=== PATIENT | female | born 1975 | race African-American/Black ===

== ENCOUNTER 2017-10-16 19:05 | Emergency (ER) | payer OTHER ==
[2017-10-16 20:13] LABS: PLATELET COUNT 501 10^3/uL (150-400)
--- NOTE | 2017-10-16 20:17 | EDPHY ---
H & P Stated Complaint: c/o abd pain/n/v/fever since this am Source: Patient Exam Limitations: No limitations - Medical/Surgical History Hx Asthma: No Hx Chronic Respiratory Disease: No Hx Diabetes: No Hx Cardiac Disease: Yes Hx Renal Disease: No Hx Cirrhosis: No Hx Alcoholism: No Hx HIV/AIDS: No Hx Splenectomy or Spleen Trauma: No Other PMH: hypertension, edometriosis, lupus, gastric bypass surg, ovarian cyst removed, cholecystectomy, appendectomy, orif L ankle, breast reduction - Social History Smoking Status: Never smoked Time Seen by Provider: 10/16/17 20:16 HPI/ROS: CHIEF COMPLAINT: Abdominal pain, nausea and vomiting, low-grade fever HISTORY OF PRESENT ILLNESS: The patient presents to the ED with a 1 day history of abdominal pain, vomiting and scant hematemesis. The patient reports she has had approximately a 5 day history of a low-grade fever. She denies cough, congestion or dysuria. The patient reports she does have some mild chronic intermittent abdominal pain as she is status post gastric bypass in November of 2015. The patient has had a remote history of peptic ulcer disease. She denies any melena or significant NSAID consumption. The patient reports she is not currently receiving primary care. She denies any melena. She denies recent hospitalization. The patient does have a history of chronic abdominal pain. This is secondary to endometriosis. She is currently working with a chronic pain provider for management of the symptoms. The patient currently is complaining of a bandlike upper abdominal pain. She has a prior history of cholecystectomy. She denies diarrhea. She has been experiencing symptoms of constipation. REVIEW OF SYSTEMS: A comprehensive 10 point review of systems is otherwise negative aside from elements mentioned in the history of present illness. (Brandon Michelle) - Physical Exam Exam: General Appearance: Alert female, no acute distress Eyes: Pupils equal and round no pallor or injection ENT, Mouth: Mucous membranes moist Respiratory: There are no retractions, lungs are clear to auscultation Cardiovascular: Regular rate and rhythm Gastrointestinal: Minimal epigastric tenderness, normal bowel sounds Neurological: A&O, normal motor function, normal sensory exam, normal cranial nerves Skin: Warm and dry, no rashes Musculoskeletal: Neck is supple nontender Extremities: symmetrical, full range of motion (Brandon Michelle) Constitutional: Initial Vital Signs Temperature (C) 37.7 C 10/16/17 19:22 Heart Rate 112 H 10/16/17 19:22 Respiratory Rate 20 10/16/17 19:22 Blood Pressure 189/131 H 10/16/17 19:22 O2 Sat (%) 96 10/16/17 19:22 O2 Delivery Mode Room Air Allergies/Adverse Reactions: metoclopramide [From Reglan] Allergy (Verified 10/16/17 19:27) NSAIDS (Non-Steroidal Anti-Inflamma Allergy (Verified 10/16/17 19:27) Penicillins Allergy (Verified 10/16/17 19:27) Home Medications: Medication Instructions Recorded Clonidine 10/16/17 Lexapro 10/16/17 Progesterone 10/16/17 Protonix 10/16/17 Ranitidine HCl [Zantac] 150 mg PO DAILY #30 tablet 10/16/17 Xanax 10/16/17 Medical Decision Making ED Course/Re-evaluation: I reviewed the [facility] The patient was evaluated at the [facility] for abdominal pain and tachycardia in August of this year. She had a CT pulmonary angiogram which was negative and a CT scan of the abdomen and pelvis which was negative. The patient had an IV established. She received 1 L of normal saline. She received 4 mg of IV Zofran. Given the patient's complaints of abdominal pain and prior surgery coupled with her leukocytosis. A CT scan of the abdomen pelvis with IV contrast has been ordered. The patient will be turned over to Dr. Browning at shift change pending the results of her CT scan and reassessment. If the CT scan that demonstrates a surgical process the patient will clearly need to be admitted to the hospital. For CT scan is negative my hope would be that the patient can be managed conservatively with Pepcid, anti emetics and gastroenterology follow-up. (Brandon Michelle) [id number]: CT scan abdomen pelvis with IV contrast negative for acute inflammatory process small hiatal hernia this was called to me by Dr. Padilla [id number]: I did go re-evaluate the patient this time she is resting comfortably she does feel better. She did request IV pain medicine here in the emergency room she was given 0.5 mg IV Dilaudid is feeling better there has been no vomiting. I did reexamine her abdomen at this time is soft nontender. She is feeling better she is agreeable discharge home. Her blood work and CT have been reviewed. I have discussed return precautions with her she understands return emergency room if develops worsening abdominal pain fever vomiting (Terence Browning) Differential Diagnosis: Differential diagnosis considered includes peptic ulcer disease, pancreatitis, Annalee-Gilbert tear, gastroenteritis, perforation, obstruction (Brandon Michelle) - Data Points Laboratory Results: Laboratory Results 10/16/17 20:00 10/16/17 20:00 10/16/17 10/16/17 10/16/17 20:50 20:00 20:00 WBC RBC Hgb Hct MCV MCH MCHC RDW Plt Count MPV Neut % (Auto) Lymph % (Auto) [place] % (Auto) Eos % (Auto) Baso % (Auto) Nucleat RBC Rel Count Absolute Neuts (auto) Absolute Lymphs (auto) Absolute Monos (auto) Absolute Eos (auto) Absolute Basos (auto) Absolute Nucleated RBC Immature Gran % Immature Gran # Sodium Potassium Chloride Carbon Dioxide Anion Gap BUN Creatinine Estimated GFR Glucose Calcium Total Bilirubin 0.6 mg/dL mg/dL (0.1-1.4) Conjugated Bilirubin 0.6 mg/dL H mg/dL (0.0-0.5) Unconjugated Bilirubin 0.0 mg/dL mg/dL (0.0-1.1) AST 34 IU/L IU/L (14-46) ALT 28 IU/L IU/L (9-52) Alkaline Phosphatase 76 IU/L IU/L (38-126) Total Protein 7.3 g/dL g/dL (6.3-8.2) Albumin 3.8 g/dL g/dL (3.5-5.0) Lipase 132 IU/L IU/L (23-300) Beta HCG, Qual NEGATIVE Specimen Hemolysis Urine Color YELLOW Urine Appearance CLEAR Urine pH 6.0 (5.0-7.5) Ur Specific [place] 1.017 (1.002-1.030) Urine Protein NEGATIVE (NEGATIVE) Urine Ketones NEGATIVE (NEGATIVE) Urine Blood NEGATIVE (NEGATIVE) Urine Nitrate NEGATIVE (NEGATIVE) Urine Bilirubin NEGATIVE (NEGATIVE) Urine Urobilinogen NEGATIVE EU EU (0.2-1.0) Ur Leukocyte Esterase NEGATIVE (NEGATIVE) Urine RBC NONE SEEN /hpf /hpf (0-3) Urine WBC 1-3 /hpf /hpf (0-3) Ur Epithelial Cells TRACE /lpf /lpf (NONE-1+) Urine Bacteria TRACE /hpf H /hpf (NONE SEEN) Urine Mucus TRACE /lpf /lpf (NONE-1+) Urine Glucose NEGATIVE (NEGATIVE) 10/16/17 10/16/17 20:00 20:00 WBC 16.62 10^3/uL H 10^3/uL (3.80-9.50) RBC 4.49 10^6/uL 10^6/uL (4.18-5.33) Hgb 11.3 g/dL L g/dL (12.6-16.3) Hct 35.4 % L % (38.0-47.0) MCV 78.8 fL L fL (81.5-99.8) MCH 25.2 pg L pg (27.9-34.1) MCHC 31.9 g/dL L g/dL (32.4-36.7) RDW 16.8 % H % (11.5-15.2) Plt Count 501 10^3/uL H 10^3/uL (150-400) MPV 9.2 fL fL (8.7-11.7) Neut % (Auto) 69.9 % % (39.3-74.2) Lymph % (Auto) 23.8 % % (15.0-45.0) [place] % (Auto) 4.7 % % (4.5-13.0) Eos % (Auto) 0.8 % % (0.6-7.6) Baso % (Auto) 0.4 % % (0.3-1.7) Nucleat RBC Rel Count 0.0 % % (0.0-0.2) Absolute Neuts (auto) 11.62 10^3/uL H 10^3/uL (1.70-6.50) Absolute Lymphs (auto) 3.95 10^3/uL H 10^3/uL (1.00-3.00) Absolute Monos (auto) 0.78 10^3/uL 10^3/uL (0.30-0.80) Absolute Eos (auto) 0.13 10^3/uL 10^3/uL (0.03-0.40) Absolute Basos (auto) 0.07 10^3/uL 10^3/uL (0.02-0.10) Absolute Nucleated RBC 0.00 10^3/uL 10^3/uL (0-0.01) Immature Gran % 0.4 % % (0.0-1.1) Immature Gran # 0.07 10^3/uL 10^3/uL (0.00-0.10) Sodium 142 mEq/L mEq/L (135-145) Potassium 4.9 mEq/L mEq/L (3.5-5.2) Chloride 112 mEq/L H mEq/L (97-110) Carbon Dioxide 19 mEq/l L mEq/l (22-31) Anion Gap 11 mEq/L mEq/L (8-16) BUN 10 mg/dL mg/dL (7-23) Creatinine 0.7 mg/dL mg/dL (0.6-1.0) Estimated GFR > 60 Glucose 90 mg/dL mg/dL (70-100) Calcium 8.7 mg/dL mg/dL (8.5-10.4) Total Bilirubin Conjugated Bilirubin Unconjugated Bilirubin AST ALT Alkaline Phosphatase Total Protein Albumin Lipase Beta HCG, Qual Specimen Hemolysis 133 Urine Color Urine Appearance Urine pH Ur Specific [place] Urine Protein Urine Ketones Urine Blood Urine Nitrate Urine Bilirubin Urine Urobilinogen Ur Leukocyte Esterase Urine RBC Urine WBC Ur Epithelial Cells Urine Bacteria Urine Mucus Urine Glucose Medications Given: Discontinued Medications Hydromorphone HCl (Dilaudid) 0.5 mg IVP EDNOW ONE Stop: 10/16/17 21:45 Last Admin: 10/16/17 21:52 Dose: 0.5 mg Sodium Chloride (Ns) 1,000 mls @ 0 mls/hr IV ONCE ONE; Wide Open PRN Reason: Protocol Stop: 10/16/17 20:46 Last Admin: 10/16/17 20:58 Dose: 1,000 mls Ondansetron HCl (Zofran) 4 mg IVP EDNOW ONE Stop: 10/16/17 20:47 Last Admin: 10/16/17 20:58 Dose: 4 mg Departure - Departure Disposition: Home, Routine, Self-Care Clinical Impression: Abdominal pain Qualifiers: Abdominal location: generalized Qualified Code(s): R10.84 - Generalized abdominal pain Condition: Good Instructions: Acute Abdominal Pain (ED) Additional Instructions: 1. Take it easy over the next 24-48.. No spicy fatty greasy foods. 2. Return emergency room if develops worsening abdominal pain fever vomiting 3. Follow up with her doctor. Referrals: NONE *PRIMARY CARE P,. [Primary Care Provider] - As per Instructions Prescriptions: Ranitidine HCl [Zantac] 150 mg PO DAILY #30 tablet
[2017-10-16] MEDS ORDERED: NS 1,000 ML IV ONE (20:45)
[2017-10-16] MEDS ORDERED: ONDANSETRON 4 MG/2 ML VIAL IVP ONE (20:46)
[2017-10-16] MEDS ORDERED: IOPAMIDOL (ISOVUE-300) 100 ML BTL ONE ×2 (21:13→21:22)
[2017-10-16] MEDS ORDERED: HYDROmorphONE/DILAUDID 2 MG/ML INJ IVP ONE (21:44)
[2017-10-16 23:37] VITALS: BP 170/126
== END 2017-10-17 00:03 | disposition home or self-care (01) ==
DX: R10.84 Generalized abdominal pain (principal); I10 Essential (primary) hypertension; E86.9 Volume depletion, unspecified; Z90.49 Acquired absence of other specified parts of digestive tract
CPT/HCPCS: 96374; J1170; J2405; Q9967

== ENCOUNTER 2017-10-18 18:12 | Emergency (ER) | payer OTHER ==
--- NOTE | 2017-10-18 18:37 | EDPHY ---
H & P Stated Complaint: abd pain seen monday Time Seen by Provider: 10/18/17 18:36 HPI/ROS: HPI: A 42-year-old female who presents with Chief Complaint: abd pain seen Monday Location:bandlike upper abdomen Quality: pain Duration: today Signs and Symptoms: no fever, + nausea, no vomiting, no hematemesis, no blood in stool, no abdominal bloating, no diarrhea, no back pain, no urinary symptoms , no vaginal bleeding/discharge, no indigestion, no chest pain, no shortness of breath Timing: Acute on chronic Severity: 01/02 Context: Patient presents with complaints of acute on chronic, moderate to severe bandlike pain in her upper abdomen that was just too unbearable today. She reports that she drank some Ting with mild relief. Reports that she sees pain management from her endometriosis. Was given oxycodone does not take due to side effects. She is scheduled for an injection in her back in the next month. She is unable to take Reglan due to side effects. She denies any NSAID use/steroid use. She reports that she is status post gastric bypass surgery in November 2015 in [place]. She does take her Protonix daily. She has chronic high blood pressure and takes clonidine 0.1 mg 3 times daily. She has taken it twice today. Denies any chest pain/shortness of breath. Patient reports that she has low-grade fevers for the last 3-4 days. Patient was seen in this emergency room 10/16/2017 with laboratory studies and CT abdomen and pelvis scan that was grossly unremarkable except for small hiatal hernia. Patient reports that she does not have a primary care provider, bariatric surgeon to follow up with as she recently moved to [place], [place] from [place], [place]. Modifying Factors: regularly schedule meds Comment: ROS: see HPI Constitutional: No fever, no chills, no weight loss Eyes: No blurred vision Respiratory: No shortness of breath, no cough Cardiovascular: No chest pain, no palpitations Gastrointestinal: + nausea, no vomiting, no diarrhea, no hematemesis, no blood in stool Genitourinary: No dysuria, no blood in urine Extremities: No myalgias, no edema Neurologic: No weakness, no numbness Skin: No rashes, no petechiae Hematologic: No bruising, no bleeding MEDICAL/SURGICAL/SOCIAL HISTORY: Medical history: hypertension, endometriosis, lupus Surgical history: gastric bypass surgery, ovarian cyst removed, cholecystectomy , appendectomy, ORIF Left ankle, breast reduction Social history: Originally from [place]. Family history noncontributory. CONSTITUTIONAL: Morbidly obese well appearing middle-aged black female, awake and alert, no obvious distress HEENT: Atraumatic and normocephalic, PERRL, EOMI. Nares patent; no rhinorrhea; no nasal mucosal edema. Tympanic membranes clear. Oropharynx clear, no exudate and moist pink mucosa. Airway patent. No lymphadenopathy. No meningismus. Cardiovascular: Normal S1/S2, tachycardia, regular rhythm, without murmur rub or gallop. PULMONARY/CHEST: Symmetrical and nontender. Clear to auscultation bilaterally. Good air movement. No accessory muscle usage. ABDOMEN: Soft, nondistended, mild epigastric reproducible tenderness, no rebound, no guarding, no peritoneal signs, no masses or organomegaly. No CVAT. EXTREMITIES: 2/2 pulses, strength 5/5, no deformities, no clubbing, no cyanosis or edema. NEUROLOGICAL: no focal neuro deficits. GCS 15. SKIN: Warm and dry, no erythema. no rash. Good capillary refill. Source: Patient Exam Limitations: No limitations - Personal History LMP (Females 10-55): Over 28 Days Ago Current Tetanus Diphtheria and Acellular Pertussis (TDAP): Yes - Medical/Surgical History Hx Asthma: No Hx Chronic Respiratory Disease: No Hx Diabetes: No Hx Cardiac Disease: No Hx Renal Disease: No Hx Cirrhosis: No Hx Alcoholism: No Hx HIV/AIDS: No Hx Splenectomy or Spleen Trauma: No Other PMH: hypertension, edometriosis, lupus, gastric bypass surg, ovarian cyst removed, cholecystectomy, appendectomy, orif L ankle, breast reduction - Social History Smoking Status: Never smoked Constitutional: Initial Vital Signs Temperature (C) 37.2 C 10/18/17 18:15 Heart Rate 122 H 10/18/17 18:15 Respiratory Rate 20 10/18/17 18:15 Blood Pressure 205/142 H 10/18/17 18:15 O2 Sat (%) 96 10/18/17 18:15 O2 Delivery Mode Room Air Allergies/Adverse Reactions: metoclopramide [From Reglan] Allergy (Verified 10/18/17 18:15) NSAIDS (Non-Steroidal Anti-Inflamma Allergy (Verified 10/18/17 18:15) Penicillins Allergy (Verified 10/18/17 18:15) Home Medications: Medication Instructions Recorded Clonidine 10/16/17 Lexapro 10/16/17 Progesterone 10/16/17 Protonix 10/16/17 Ranitidine HCl [Zantac] 150 mg PO DAILY #30 tablet 10/16/17 Xanax 10/16/17 Ondansetron Odt [Zofran Odt 4 mg 4 mg PO Q4 PRN #12 tab 10/18/17 (*)] Sucralfate [Carafate 1gm/10ml Oral 1 gm PO QID 7 Days ml 10/18/17 Liquid (*)] traMADol [Ultram 50 mg (*)] 100 mg PO Q6 PRN #12 tab 10/18/17 Medical Decision Making ED Course/Re-evaluation: Labs, urinalysis, IV medications ordered Vital signs reviewed upon arrival; significantly elevated blood pressure noted; given clonidine 0.2 mg x1 Given 1 L normal saline, IV Zofran, PO Bentyl, IV Dilaudid 1.5 mg 1944: Informed by nurse that systolic blood pressure 180s 1951: Labs reviewed. Leukocytosis of 14.3 to K noted; decreased from a few days ago when was 16.6. Elevated platelet count noted. Microcytic anemia noted. 2052: Urinalysis shows no signs of infection. Reassessed patient. Abdomen soft and nontender. repeat imaging not indicated. CT abdomen and pelvis Performed 2 days prior. No indication for free air or perforation. Passed p.o. Trial prior to discharge. Pain controlled. Patient asking to be discharged home with outpatient follow-up. Referrals to primary care provider in Gastroenterology provided. Blood pressure at discharge was 137/87 with resolved tachycardia. This patient was seen under the supervision of my secondary supervising physician. I evaluated care for this patient independently. Differential Diagnosis: Abdominal pain including but not limited to appendicitis, cholecystitis, gastritis and urinary tract infection. - Data Points Laboratory Results: Laboratory Results 10/18/17 19:05 10/18/17 19:05 10/18/17 10/18/17 10/18/17 20:13 19:07 19:05 WBC RBC Hgb Hct MCV MCH MCHC RDW Plt Count MPV Neut % (Auto) Lymph % (Auto) [place] % (Auto) Eos % (Auto) Baso % (Auto) Nucleat RBC Rel Count Absolute Neuts (auto) Absolute Lymphs (auto) Absolute Monos (auto) Absolute Eos (auto) Absolute Basos (auto) Absolute Nucleated RBC Immature Gran % Immature Gran # VBG Lactic Acid 1.1 mmol/L mmol/L (0.7-2.1) Sodium Potassium Chloride Carbon Dioxide Anion Gap BUN Creatinine Estimated GFR Glucose Calcium Total Bilirubin Conjugated Bilirubin Unconjugated Bilirubin AST ALT Alkaline Phosphatase Total Protein Albumin Lipase Beta HCG, Qual NEGATIVE Urine Color PALE YELLOW Urine Appearance CLEAR Urine pH 6.0 (5.0-7.5) Ur Specific [place] 1.008 (1.002-1.030) Urine Protein NEGATIVE (NEGATIVE) Urine Ketones NEGATIVE (NEGATIVE) Urine Blood 2+ H (NEGATIVE) Urine Nitrate NEGATIVE (NEGATIVE) Urine Bilirubin NEGATIVE (NEGATIVE) Urine Urobilinogen NEGATIVE EU EU (0.2-1.0) Ur Leukocyte Esterase NEGATIVE (NEGATIVE) Urine RBC 1-3 /hpf /hpf (0-3) Urine WBC 1-3 /hpf /hpf (0-3) Ur Epithelial Cells TRACE /lpf /lpf (NONE-1+) Urine Glucose NEGATIVE (NEGATIVE) 10/18/17 10/18/17 19:05 19:05 WBC 14.30 10^3/uL H 10^3/uL (3.80-9.50) RBC 4.52 10^6/uL 10^6/uL (4.18-5.33) Hgb 11.4 g/dL L g/dL (12.6-16.3) Hct 35.7 % L % (38.0-47.0) MCV 79.0 fL L fL (81.5-99.8) MCH 25.2 pg L pg (27.9-34.1) MCHC 31.9 g/dL L g/dL (32.4-36.7) RDW 16.8 % H % (11.5-15.2) Plt Count 551 10^3/uL H D 10^3/uL (150-400) MPV 9.0 fL fL (8.7-11.7) Neut % (Auto) 68.4 % % (39.3-74.2) Lymph % (Auto) 23.3 % % (15.0-45.0) [place] % (Auto) 6.6 % % (4.5-13.0) Eos % (Auto) 1.0 % % (0.6-7.6) Baso % (Auto) 0.4 % % (0.3-1.7) Nucleat RBC Rel Count 0.0 % % (0.0-0.2) Absolute Neuts (auto) 9.77 10^3/uL H 10^3/uL (1.70-6.50) Absolute Lymphs (auto) 3.33 10^3/uL H 10^3/uL (1.00-3.00) Absolute Monos (auto) 0.94 10^3/uL H 10^3/uL (0.30-0.80) Absolute Eos (auto) 0.15 10^3/uL 10^3/uL (0.03-0.40) Absolute Basos (auto) 0.06 10^3/uL 10^3/uL (0.02-0.10) Absolute Nucleated RBC 0.00 10^3/uL 10^3/uL (0-0.01) Immature Gran % 0.3 % % (0.0-1.1) Immature Gran # 0.05 10^3/uL 10^3/uL (0.00-0.10) VBG Lactic Acid Sodium 145 mEq/L mEq/L (135-145) Potassium 4.0 mEq/L mEq/L (3.5-5.2) Chloride 110 mEq/L mEq/L (97-110) Carbon Dioxide 21 mEq/l L mEq/l (22-31) Anion Gap 14 mEq/L mEq/L (8-16) BUN 9 mg/dL mg/dL (7-23) Creatinine 0.8 mg/dL mg/dL (0.6-1.0) Estimated GFR > 60 Glucose 80 mg/dL mg/dL (70-100) Calcium 9.3 mg/dL mg/dL (8.5-10.4) Total Bilirubin 0.4 mg/dL mg/dL (0.1-1.4) Conjugated Bilirubin 0.4 mg/dL mg/dL (0.0-0.5) Unconjugated Bilirubin 0.0 mg/dL mg/dL (0.0-1.1) AST 19 IU/L IU/L (14-46) ALT 39 IU/L IU/L (9-52) Alkaline Phosphatase 85 IU/L IU/L (38-126) Total Protein 7.3 g/dL g/dL (6.3-8.2) Albumin 3.9 g/dL g/dL (3.5-5.0) Lipase 96 IU/L IU/L (23-300) Beta HCG, Qual Urine Color Urine Appearance Urine pH Ur Specific [place] Urine Protein Urine Ketones Urine Blood Urine Nitrate Urine Bilirubin Urine Urobilinogen Ur Leukocyte Esterase Urine RBC Urine WBC Ur Epithelial Cells Urine Glucose Medications Given: Discontinued Medications Clonidine (Catapres) 0.2 mg PO EDNOW ONE Stop: 10/18/17 18:49 Last Admin: 10/18/17 19:54 Dose: 0.2 mg Dicyclomine HCl (Bentyl) 20 mg PO EDNOW ONE Stop: 10/18/17 18:48 Last Admin: 10/18/17 19:54 Dose: 20 mg Hydralazine HCl (Apresoline) 10 mg IVP EDNOW ONE Stop: 10/18/17 20:18 Last Admin: 10/18/17 21:24 Dose: Not Given Hydromorphone HCl (Dilaudid) 0.5 mg IVP EDNOW ONE Stop: 10/18/17 18:58 Last Admin: 10/18/17 19:27 Dose: 0.5 mg Hydromorphone HCl (Dilaudid) 1 mg IVP EDNOW ONE Stop: 10/18/17 20:17 Last Admin: 10/18/17 20:26 Dose: 1 mg Sodium Chloride (Ns) 1,000 mls @ 0 mls/hr IV EDNOW ONE; Wide Open PRN Reason: Protocol Stop: 10/18/17 18:40 Last Admin: 10/18/17 19:22 Dose: 1,000 mls Ondansetron HCl (Zofran) 4 mg IVP EDNOW ONE Stop: 10/18/17 18:40 Last Admin: 10/18/17 19:23 Dose: 4 mg Departure - Departure Disposition: Home, Routine, Self-Care Clinical Impression: History of gastric bypass, Gastroparesis, Chronic abdominal pain, Essential hypertension Condition: Good Instructions: Acute Nausea and Vomiting (ED), Gastroparesis (ED), Nutrition after Bariatric Surgery (DC), Chronic Abdominal Pain (ED) Additional Instructions: Consume a minimum of 8-10 glasses of water or electrolyte fluid replacement drinks that include Gatorade, Powerade, Pedialyte. Eat a bland diet for the next 48 hours and then slowly advance as tolerated. Please establish care with primary care provider and Gastroenterology. Continue to follow up with pain management as directed. Return to the ER immediately if you experience new, continued or worsening abdominal pain, fevers/chills, inability to tolerate oral intake, new pain, or any other symptoms that concern you. Referrals: Gabriele Aguilar MD [Medical Doctor] - As per Instructions Bryant Clark MD [Medical Doctor] - As per Instructions Prescriptions: Ondansetron Odt [Zofran Odt 4 mg (*)] 4 mg PO Q4 PRN #12 tab PRN Reason: Nausea/Vomiting, Use 1st Sucralfate [Carafate 1gm/10ml Oral Liquid (*)] 1 gm PO QID 7 Days ml traMADol [Ultram 50 mg (*)] 100 mg PO Q6 PRN #12 tab PRN Reason: Pain, Severe
[2017-10-18] MEDS ORDERED: NS 1,000 ML IV ONE (18:39)
[2017-10-18] MEDS ORDERED: ONDANSETRON 4 MG/2 ML VIAL IVP ONE (18:39)
[2017-10-18] MEDS ORDERED: DICYCLOMINE 10 MG CAP PO ONE (18:47)
[2017-10-18] MEDS ORDERED: HYDROmorphONE/DILAUDID 2 MG/ML INJ IVP ONE ×2 (18:57→20:16)
[2017-10-18 19:21] LABS: PLATELET COUNT 551 10^3/uL (150-400)
[2017-10-18] MEDS ORDERED: hydrALAZINE 20 MG/ML VIAL IVP ONE (20:17)
[2017-10-18] MEDS ORDERED: PROMETHAZINE 25 MG PREPACK #4 BTL TAKEHOME ONE (20:55)
[2017-10-18 22:52] VITALS: BP 158/105
== END 2017-10-18 22:52 | disposition home or self-care (01) ==
DX: K31.84 Gastroparesis (principal); G89.29 Other chronic pain; I10 Essential (primary) hypertension; E86.9 Volume depletion, unspecified; Z90.49 Acquired absence of other specified parts of digestive tract; Z90.89 Acquired absence of other organs; Z98.84 Bariatric surgery status
CPT/HCPCS: 96374; J1170; J2405

== ENCOUNTER 2017-11-14 19:56 | Emergency (ER) | payer OTHER ==
[2017-11-14 21:16] LABS: PLATELET COUNT 530 10^3/uL (150-400)
[2017-11-14] MEDS ORDERED: fentaNYL 100 MCG/2 ML INJ IVP ONE (21:18)
--- NOTE | 2017-11-14 22:20 | EDPHY ---
H & P Time Seen by Provider: 11/14/17 20:21 HPI/ROS: CHIEF COMPLAINT: Abdominal pain HISTORY OF PRESENT ILLNESS: 42-year-old female presents to the emergency department with right lower quadrant abdominal pain. The patient states that she has had a fever intermittently over last 1 week. She was seen by her primary care provider earlier in the week and was diagnosed with bronchitis. She was started on Levaquin. She has been taking this over last 4 days. She states that she developed right lower quadrant abdominal pain yesterday that is getting worse. No urinary symptoms. No flank pain. No chest pain or difficulty breathing. No abdominal pain. No fevers or chills. Still continues to have ongoing mild cough. No headache. No reported trauma. REVIEW OF SYSTEMS: Constitutional: No fever, no chills. Eyes: No double or blurry vision. ENT: No sore throat. Respiratory: No cough, no shortness of breath. Cardiac: No chest pain. Gastrointestinal: Abdominal pain as above. No vomiting or diarrhea. Genitourinary: No dysuria. Musculoskeletal: No neck or back pain. Skin: No rashes. Neurological: No headache. Past Medical/Surgical History: Appendectomy, cholecystectomy, gastric bypass surgery 2017 Social History: Single. Smoking Status: Never smoked Physical Exam: General Appearance: Alert, no distress. Oral temperature 99.5 degrees. Eyes: Pupils equal and round. Extraocular motions are all intact. ENT: Mouth: Mucous membranes moist. Respiratory: No wheezing, rhonchi, or rales, lungs are clear to auscultation. Cardiovascular: Regular rate and rhythm. Gastrointestinal: Well-healed surgical incisions. Abdomen is soft. Tenderness with palpation in the right lower quadrant. No rebound, guarding or masses noted. Positive CVA tenderness on the right, none on the left. Neurological: Alert and oriented x 3, cranial nerves II through XII grossly intact Skin: Warm and dry, no rashes. Musculoskeletal: Nontender to palpate along the cervical, thoracic or lumbar spine. Neck is supple. Extremities: Full range of motion and no peripheral edema. Psychiatric: Patient is oriented X 3, there is no agitation. Constitutional: Initial Vital Signs Temperature (C) 37.0 C 11/14/17 20:09 Heart Rate 104 H 11/14/17 20:09 Respiratory Rate 20 11/14/17 20:09 Blood Pressure 169/120 H 11/14/17 20:09 O2 Sat (%) 97 11/14/17 20:09 O2 Delivery Mode Room Air Allergies/Adverse Reactions: metoclopramide [From Reglan] Allergy (Verified 11/14/17 20:01) NSAIDS (Non-Steroidal Anti-Inflamma Allergy (Verified 11/14/17 20:01) Penicillins Allergy (Verified 11/14/17 20:01) Home Medications: Medication Instructions Recorded Clonidine 10/16/17 Lexapro 10/16/17 Progesterone 10/16/17 Protonix 10/16/17 Ranitidine HCl [Zantac] 150 mg PO DAILY #30 tablet 10/16/17 Xanax 10/16/17 Ondansetron Odt [Zofran Odt 4 mg 4 mg PO Q4 PRN #12 tab 10/18/17 (*)] Sucralfate [Carafate 1gm/10ml Oral 1 gm PO QID 7 Days ml 10/18/17 Liquid (*)] traMADol [Ultram 50 mg (*)] 100 mg PO Q6 PRN #12 tab 10/18/17 Medical Decision Making - Diagnostics Imaging Results: Imaging Impressions Pelvic/Renal Ultrasound 11/14/17 20:35 Impression: 1. Essentially negative pelvic ultrasound, which is technically limited by the patient's body habitus. Color Doppler in the left ovary is suboptimal, however , the ovary is not enlarged and there is no free fluid. 2. Uterine fibroid formation is suspected. Results called and discussed with BARBARA Isidro, on November 14, [address] 11/14/17 22:21 Impression: 1. No acute abdominal or pelvic abnormality. 2. See above report for additional findings. Results called and discussed with BAUDILIO JIMENEZ on 11/14/2017 at 22:57 Imaging: Discussed imaging studies w/ digital account executive Radiologist ED Course/Re-evaluation: 42-year-old female presents to the emergency department with abdominal pain. Pelvic ultrasound was unremarkable. She did have some uterine fibroids noted. The exam was somewhat limited due to body habitus. Patient had elevated white blood cell count of nearly 18,000. Given her ongoing abdominal pain, I recommended CT scan of the abdomen and pelvis. CT scan of the abdomen pelvis was unremarkable. The patient was given 50 mcg of IV fentanyl and 0.5 mg of IV Dilaudid for pain. The case was discussed with Dr. Janine Amador, secondary supervising physician , who did not directly evaluate the patient but agrees with treatment and plan. He recommended CT scan of the abdomen and pelvis. The patient has been seen 3 times in the last 1 month with abdominal pain. She has had to unremarkable CT scans. Her white blood cell count has been elevated between 14 and 18,000. She is currently taking Levaquin which I encouraged her to finish as prescribed. She was given primary care referral. I do not think she has surgical abdomen. I do not think further imaging studies are indicated. The patient is comfortable being discharged home. I did encourage her to return to the emergency department if she had any other change in symptoms or felt worse in any way. Patient verbalized understanding and agreed. Differential Diagnosis: Including but not limited to urinary tract infection, pyelonephritis, kidney stone, acute appendicitis, abscess - Data Points Laboratory Results: Laboratory Results 11/14/17 21:05 11/14/17 21:05 11/14/17 11/14/17 11/14/17 21:05 21:05 21:05 WBC 17.97 10^3/uL H 10^3/uL (3.80-9.50) RBC 4.51 10^6/uL 10^6/uL (4.18-5.33) Hgb 11.5 g/dL L g/dL (12.6-16.3) Hct 36.2 % L % (38.0-47.0) MCV 80.3 fL L fL (81.5-99.8) MCH 25.5 pg L pg (27.9-34.1) MCHC 31.8 g/dL L g/dL (32.4-36.7) RDW 17.2 % H % (11.5-15.2) Plt Count 530 10^3/uL H 10^3/uL (150-400) MPV 9.1 fL fL (8.7-11.7) Neut % (Auto) 69.5 % % (39.3-74.2) Lymph % (Auto) 23.8 % % (15.0-45.0) [place] % (Auto) 5.5 % % (4.5-13.0) Eos % (Auto) 0.5 % L % (0.6-7.6) Baso % (Auto) 0.4 % % (0.3-1.7) Nucleat RBC Rel Count 0.0 % % (0.0-0.2) Absolute Neuts (auto) 12.49 10^3/uL H 10^3/uL (1.70-6.50) Absolute Lymphs (auto) 4.28 10^3/uL H 10^3/uL (1.00-3.00) Absolute Monos (auto) 0.99 10^3/uL H 10^3/uL (0.30-0.80) Absolute Eos (auto) 0.09 10^3/uL 10^3/uL (0.03-0.40) Absolute Basos (auto) 0.07 10^3/uL 10^3/uL (0.02-0.10) Absolute Nucleated RBC 0.00 10^3/uL 10^3/uL (0-0.01) Immature Gran % 0.3 % % (0.0-1.1) Immature Gran # 0.05 10^3/uL 10^3/uL (0.00-0.10) RBC/WBC/PLT Morphology TNP Platelet Estimate TNP Sodium 141 mEq/L mEq/L (135-145) Potassium 4.9 mEq/L mEq/L (3.3-5.0) Chloride 110 mEq/L mEq/L (97-110) Carbon Dioxide 19 mEq/l L mEq/l (22-31) Anion Gap 12 mEq/L mEq/L (8-16) BUN 10 mg/dL mg/dL (7-23) Creatinine 0.8 mg/dL mg/dL (0.6-1.0) Estimated GFR > 60 Glucose 80 mg/dL mg/dL (70-100) Calcium 9.4 mg/dL mg/dL (8.5-10.4) Beta HCG, Qual NEGATIVE Urine Color Urine Appearance Urine pH Ur Specific [place] Urine Protein Urine Ketones Urine Blood Urine Nitrate Urine Bilirubin Urine Urobilinogen Ur Leukocyte Esterase Urine RBC Urine WBC Ur Epithelial Cells Urine Mucus Urine Glucose 11/14/17 20:00 WBC RBC Hgb Hct MCV MCH MCHC RDW Plt Count MPV Neut % (Auto) Lymph % (Auto) [place] % (Auto) Eos % (Auto) Baso % (Auto) Nucleat RBC Rel Count Absolute Neuts (auto) Absolute Lymphs (auto) Absolute Monos (auto) Absolute Eos (auto) Absolute Basos (auto) Absolute Nucleated RBC Immature Gran % Immature Gran # RBC/WBC/PLT Morphology Platelet Estimate Sodium Potassium Chloride Carbon Dioxide Anion Gap BUN Creatinine Estimated GFR Glucose Calcium Beta HCG, Qual Urine Color YELLOW Urine Appearance CLEAR Urine pH 6.0 (5.0-7.5) Ur Specific [place] 1.019 (1.002-1.030) Urine Protein NEGATIVE (NEGATIVE) Urine Ketones NEGATIVE (NEGATIVE) Urine Blood NEGATIVE (NEGATIVE) Urine Nitrate NEGATIVE (NEGATIVE) Urine Bilirubin NEGATIVE (NEGATIVE) Urine Urobilinogen NEGATIVE EU EU (0.2-1.0) Ur Leukocyte Esterase NEGATIVE (NEGATIVE) Urine RBC 3-5 /hpf H /hpf (0-3) Urine WBC 1-3 /hpf /hpf (0-3) Ur Epithelial Cells TRACE /lpf /lpf (NONE-1+) Urine Mucus TRACE /lpf /lpf (NONE-1+) Urine Glucose NEGATIVE (NEGATIVE) Medications Given: Discontinued Medications Fentanyl (Sublimaze) 50 mcg IVP EDNOW ONE Stop: 11/14/17 21:19 Last Admin: 11/14/17 21:22 Dose: 50 mcg Hydromorphone HCl (Dilaudid) 0.5 mg IVP EDNOW ONE Stop: 11/14/17 22:31 Last Admin: 11/14/17 22:35 Dose: 0.5 mg Departure - Departure Disposition: Home, Routine, Self-Care Clinical Impression: Abdominal pain Qualifiers: Abdominal location: right lower quadrant Qualified Code(s): R10.31 - Right lower quadrant pain Condition: Fair Instructions: Acute Abdominal Pain (ED) Additional Instructions: Abdominal Pain: Return to the Emergency Department immediately for increasing pain, fever, vomiting, or if not completely better in 8-12 hours. Referrals: Nish Montoya DO [Doctor of Osteopathy] - 2-3 days, call for appt. (Primary care provider peoplesoft consultant) Brandie Cordova MD [Medical Doctor] - As per Instructions (OBGYN on-call)
[2017-11-14] MEDS ORDERED: IOPAMIDOL (ISOVUE-300) 100 ML BTL ONE (22:23)
[2017-11-14] MEDS ORDERED: HYDROmorphONE/DILAUDID 1 MG/ML INJ ONE (22:29)
[2017-11-14] MEDS ORDERED: HYDROmorphONE/DILAUDID 2 MG/ML INJ IVP ONE (22:30)
[2017-11-14 23:03] VITALS: BP 173/89
== END 2017-11-14 23:26 | disposition home or self-care (01) ==
DX: R10.31 Right lower quadrant pain (principal); Z90.49 Acquired absence of other specified parts of digestive tract
CPT/HCPCS: 96374; J1170; J3010; Q9967

== ENCOUNTER 2017-11-15 16:12 | Observation (INO) | payer OTHER ==
[2017-11-15] MEDS ORDERED: fentaNYL 100 MCG/2 ML INJ IVP ONE (16:44)
[2017-11-15] MEDS ORDERED: NS 2,000 ML IV ONE (16:44)
--- NOTE | 2017-11-15 17:10 | EDPHY ---
H & P Stated Complaint: seen yesterday/suprapubic pain/fever - Personal History LMP (Females 10-55): Over 28 Days Ago Current Tetanus/Diphtheria Vaccine: Yes - Medical/Surgical History Hx Asthma: Yes Hx Chronic Respiratory Disease: No Hx Diabetes: No Hx Cardiac Disease: No Hx Renal Disease: No Hx Cirrhosis: No Hx Alcoholism: No Hx HIV/AIDS: No Hx Splenectomy or Spleen Trauma: No Other PMH: hypertension, edometriosis, lupus, gastric bypass surg, ovarian cyst removed, cholecystectomy, appendectomy, orif L ankle, breast reduction - Social History Smoking Status: Never smoked Time Seen by Provider: 11/15/17 16:27 HPI/ROS: CHIEF COMPLAINT: Continued abdominal pain HISTORY OF PRESENT ILLNESS: 42-year-old female with multiple abdominal surgical history including gastric bypass, cholecystectomy, appendectomy, multiple subsequent surgeries for complications particular related to gastric bypass, seen the ER yesterday for evaluation of abdominal pain, has been experiencing right lower abdominal pain and had been seen by her PCP earlier this week diagnosed with bronchitis and started on Levaquin. In the ER yesterday she had comprehensive evaluation including pelvic renal ultrasound and abdominal CT all of which were negative for acute abdominal pathology with uterine fibroids noted as well. She returns to the ER noting continued abdominal pain, subjective fever. No nausea or vomiting. Bowel movements have been normal. No back or flank pain. No urinary abnormality. No abnormal vaginal discharge or bleeding. She notes history of ongoing chronic abdominal pain since her multiple surgeries , has been evaluated by multiple individuals in other states with no particular etiology discovered. She also notes ongoing thrombocytosis particular etiology of which is incompletely clear. REVIEW OF SYSTEMS: A ten point review of systems was performed and is negative with the exception of the items mentioned in the HPI PAST MEDICAL & SURGICAL HISTORY: Gastric bypass. Appendectomy. Cholecystectomy. Chronic thrombocytosis. Dietary controlled diabetes. Hypertension. No known history of sickle cell disease or trait. SOCIAL HISTORY: Nonsmoker PHYSICAL EXAM (Prior to examination, patient consented to physical exam, hands were washed and my usual and customary physical exam procedures followed) 1) GENERAL: obese, alert and oriented. Appears to be in no acute distress. 2) HEAD: Normocephalic, atraumatic 3) HEENT: Pupils equal, round, reactive to light bilaterally. Sclera anicteric. 4) NECK: Full range of motion, no meningeal signs. 5) LUNGS: Clear auscultation bilaterally, no wheezes, no rhonchi, no retractions. 6) HEART: Regular rate and rhythm, no murmur, no heave, no gallop. 7) ABDOMEN: Tender to palpation bilateral lower quadrants of abdomen. 8) MUSCULOSKELETAL: Moving all extremities, no focal areas of tenderness, no obvious trauma. No peripheral edema or discoloration. 9) BACK: No CVA tenderness, no midline vertebral tenderness, no fluctuance, no step-off, no obvious trauma, no visual or palpable abnormality. 10) SKIN: No rash, no petechiae. 11) Psychiatric: Patient is oriented X 3, there is no agitation. DIFFERENTIAL DIAGNOSIS: My differential diagnosis includes, but is not limited to, acute appendicitis, acute cholecystitis, bowel obstruction, acute pancreatitis, ovarian torsion, ectopic , gastritis and urinary tract infection. The patient understands that this diagnosis is provisional and can never be 100% accurate. This is a partial list of diagnoses considered. These considerations are based on history, physical exam, past history and reassessment. (Jennie Lopez) Constitutional: Initial Vital Signs Temperature (C) 37.7 C 11/15/17 16:16 Heart Rate 118 H 11/15/17 16:16 Respiratory Rate 18 11/15/17 16:16 Blood Pressure 180/116 H 11/15/17 16:16 O2 Sat (%) 95 11/15/17 16:16 O2 Delivery Mode Room Air Allergies/Adverse Reactions: metoclopramide [From Reglan] Allergy (Verified 11/15/17 16:14) NSAIDS (Non-Steroidal Anti-Inflamma Allergy (Verified 11/15/17 16:14) Penicillins Allergy (Verified 11/15/17 16:14) Home Medications: Medication Instructions Recorded Clonidine 10/16/17 Lexapro 10/16/17 Progesterone 10/16/17 Protonix 10/16/17 Ranitidine HCl [Zantac] 150 mg PO DAILY #30 tablet 10/16/17 Xanax 10/16/17 Ondansetron Odt [Zofran Odt 4 mg 4 mg PO Q4 PRN #12 tab 10/18/17 (*)] Sucralfate [Carafate 1gm/10ml Oral 1 gm PO QID 7 Days ml 10/18/17 Liquid (*)] traMADol [Ultram 50 mg (*)] 100 mg PO Q6 PRN #12 tab 10/18/17 Adderall 10 MG (*) 11/15/17 Medical Decision Making ED Course/Re-evaluation: I have reviewed this patient's old medical records including the ER visit from yesterday at which point she had imaging studies performed. She is requesting whether we can discover the etiology of her ongoing abdominal pain. At this time I do not think that repeat imaging is indicated as she had imaging studies performed last evening. Will obtain repeat laboratory studies administer IV hydration as she is noted to be tachycardic will administer analgesia and re- evaluated. Care of patient under supervision of secondary supervising physician Dr Mccabe . test yesterday was negative. Urinalysis yesterday positive for trace bacteria trace WBCs more than likely secondary to contaminant. 6:15 p.m.: Re-evaluation, she is being given IV hydration, she has received IV fentanyl. She complains of continued pain. She expresses concerns about being discharged home, concerns over return of pain without specific etiology, continued abnormal laboratory studies. 6:47 p.m.: Consultation with hospitalist Dr. Casarez who will admit patient ( Jennie Lopez) - Data Points Laboratory Results: Laboratory Results 11/15/17 16:56 11/15/17 16:56 11/15/17 11/15/17 16:56 16:56 WBC 12.55 10^3/uL H 10^3/uL (3.80-9.50) RBC 4.68 10^6/uL 10^6/uL (4.18-5.33) Hgb 11.8 g/dL L g/dL (12.6-16.3) Hct 37.2 % L % (38.0-47.0) MCV 79.5 fL L fL (81.5-99.8) MCH 25.2 pg L pg (27.9-34.1) MCHC 31.7 g/dL L g/dL (32.4-36.7) RDW 17.2 % H % (11.5-15.2) Plt Count 567 10^3/uL H 10^3/uL (150-400) MPV 9.4 fL fL (8.7-11.7) Neut % (Auto) 66.1 % % (39.3-74.2) Lymph % (Auto) 26.0 % % (15.0-45.0) [place] % (Auto) 6.1 % % (4.5-13.0) Eos % (Auto) 0.8 % % (0.6-7.6) Baso % (Auto) 0.6 % % (0.3-1.7) Nucleat RBC Rel Count 0.0 % % (0.0-0.2) Absolute Neuts (auto) 8.31 10^3/uL H 10^3/uL (1.70-6.50) Absolute Lymphs (auto) 3.26 10^3/uL H 10^3/uL (1.00-3.00) Absolute Monos (auto) 0.76 10^3/uL 10^3/uL (0.30-0.80) Absolute Eos (auto) 0.10 10^3/uL 10^3/uL (0.03-0.40) Absolute Basos (auto) 0.07 10^3/uL 10^3/uL (0.02-0.10) Absolute Nucleated RBC 0.00 10^3/uL 10^3/uL (0-0.01) Immature Gran % 0.4 % % (0.0-1.1) Immature Gran # 0.05 10^3/uL 10^3/uL (0.00-0.10) Sodium 143 mEq/L mEq/L (135-145) Potassium 4.0 mEq/L mEq/L (3.3-5.0) Chloride 108 mEq/L mEq/L (97-110) Carbon Dioxide 21 mEq/l L mEq/l (22-31) Anion Gap 14 mEq/L mEq/L (8-16) BUN 9 mg/dL mg/dL (7-23) Creatinine 0.7 mg/dL mg/dL (0.6-1.0) Estimated GFR > 60 Glucose 93 mg/dL mg/dL (70-100) Calcium 9.2 mg/dL mg/dL (8.5-10.4) Total Bilirubin 0.5 mg/dL mg/dL (0.1-1.4) Conjugated Bilirubin 0.5 mg/dL mg/dL (0.0-0.5) Unconjugated Bilirubin 0.0 mg/dL mg/dL (0.0-1.1) AST 62 IU/L H IU/L (14-46) ALT 91 IU/L H IU/L (9-52) Alkaline Phosphatase 106 IU/L IU/L (38-126) Total Protein 7.6 g/dL g/dL (6.3-8.2) Albumin 4.1 g/dL g/dL (3.5-5.0) Lipase 197 IU/L IU/L (23-300) Medications Given: Sodium Chloride (Ns) 1,000 mls @ 100 mls/hr IV CONT TIARA Stop: 05/14/18 19:44 Last Admin: 11/15/17 20:27 Dose: 1,000 mls Discontinued Medications Fentanyl (Sublimaze) 100 mcg IVP EDNOW ONE Stop: 11/15/17 16:45 Last Admin: 11/15/17 17:30 Dose: 100 mcg Hydromorphone HCl (Dilaudid) 1 mg IVP EDNOW ONE Stop: 11/15/17 18:25 Last Admin: 11/15/17 18:29 Dose: 1 mg Sodium Chloride (Ns) 2,000 mls @ 0 mls/hr IV ONCE ONE PRN Reason: Wide Open Stop: 11/15/17 16:45 Last Admin: 11/15/17 17:30 Dose: 2,000 mls Departure - Departure Disposition: [facility]
[2017-11-15 17:32] LABS: PLATELET COUNT 567 10^3/uL (150-400)
[2017-11-15] MEDS ORDERED: HYDROmorphONE/DILAUDID 1 MG/ML INJ IVP ONE (18:24)
[2017-11-15] MEDS ORDERED: ONDANSETRON DISINTEGRATING 4 MG TAB PO PRN (19:33)
[2017-11-15] MEDS ORDERED: ONDANSETRON 4 MG/2 ML VIAL IVP PRN (19:33)
[2017-11-15] MEDS ORDERED: ACETAMINOPHEN 325 MG TAB PO PRN (19:33)
[2017-11-15] MEDS: NS 1,000 ML IV SCH (20:27)
[2017-11-15] MEDS ORDERED: ESCITALOPRAM OXALATE 10 MG TAB PO SCH (21:00)
[2017-11-15] MEDS ORDERED: ALPRAZolam 1 MG TAB PO SCH (21:00)
[2017-11-15] MEDS: DICYCLOMINE 20 MG TAB PO PRN (21:58)
[2017-11-15] MEDS ORDERED: ALPRAZolam 1 MG TAB PO PRN (22:36)
[2017-11-15] MEDS ORDERED: PROMETHAZINE HCL 25 MG/ML INJ IVP PRN (22:37)
[2017-11-15] MEDS ORDERED: PROMETHAZINE HCL 25 MG TAB PO PRN (22:37)
--- NOTE | 2017-11-15 22:42 | PDGENHP ---
History and Physical - Chief Complaint Acute abdominal pain - History of Present Illness Primary care provider: None Primary pain specialist: [facility] Primary psychiatrist: Dr. Gilbert in [place] HPI: 42-year-old female presenting with acute abdominal pain characterized as crampy pain located in the suprapubic area in a bandlike fashion with associated documented fevers at home up to 102 degrees as well as night sweats occurring for the past 2 weeks. The patient reports that abdominal pain in this location is intermittent, but has been quiescent for the past week and began to escalate on the day prior to presentation, becoming particularly a disabling around 11:00 a.m. On the day of this presentation. Duration has been persistent thereafter, and was not particularly alleviated by fentanyl or Dilaudid received in the emergency department. She reports that she has been prescribed oxycodone immediate release by the pain clinic, but this seems to exacerbate nausea and vomiting, and she attempts to avoid these medications. She was also recently initiated on levofloxacin for reasons unclear, and has been taking Tylenol at home as needed for the stay a cyclic fevers which seem to be happening nightly. She denies any recent rashes, shortness of breath, change in bowel habits, and her most recent bowel movement was on the day of this presentation. It should be noted that the patient has a long history of chronic abdominal pain. She reports that it is characteristically located in 2 separate areas: Her upper abdomen, which she associates with post gastric bypass pain, as well as her suprapubic area, which she associates as endometriosis pain. She works with her [facility] to address the upper abdominal pain, and works with a previous gynecologic provider to address the suprapubic pain. Additionally, she was previously diagnosed with possible lupus after she was experiencing cyclic rashes in her upper chest when she was living in a [facility]. Is unclear whether any of these conditions are connected. She also reports that she has had upper endoscopies performed 3 times, in [facility], to evaluate whether she has any post gastric bypass complications. History Information - Allergies/Home Medication List Allergies/Adverse Reactions: metoclopramide [From Reglan] Allergy (Verified 11/15/17 16:14) NSAIDS (Non-Steroidal Anti-Inflamma Allergy (Verified 11/15/17 16:14) Penicillins Allergy (Verified 11/15/17 16:14) Home Medications: ALPRAZolam [Xanax 1 MG (*)] 1 mg PO HS 10/16/17 [Last Taken 11/14/17] Escitalopram Oxalate [Lexapro] 30 mg PO HS 10/16/17 [Last Taken 11/14/17] Norethindrone Acetate [Norethindrone AC (Lupaneta)] 15 mg PO DAILY 10/16/17 [ Last Taken 11/15/17] Pantoprazole Sodium [Protonix 40mg (*)] 40 mg PO BID 10/16/17 [Last Taken 08:00] clonIDINE [Catapres (*)] 0.1 mg PO BID@08,1400 10/16/17 [Last Taken 11/15/17 14: 00] ALPRAZolam [Alprazolam] 1 mg PO DAILY PRN 11/15/17 [Last Taken Unknown] Dextroamphetamine/Amphetamine [Adderall 30 mg Tablet] 30 mg PO DAILY PRN [Last Taken Unknown] Herbals/Supplements -Info Only 1 ea PO DAILY 11/15/17 [Last Taken Unknown] clonIDINE [Catapres (*)] 0.2 mg PO HS 11/15/17 [Last Taken 11/14/17] levOFLOXACIN [levAQUIN (*)] 500 mg PO HS 11/15/17 [Last Taken 11/14/17] I have personally reviewed and updated: family history, medical history, social history, surgical history - Past Medical History diabetes type 2, hypertension Additional medical history: Morbid obesity status post gastric bypass surgery. Reported endometriosis. Reported anxiety disorder and childhood trauma. Reported peptic ulcer disease. Reported lupus with characteristic rashes in the upper chest. Chronic abdominal pain syndrome - Surgical History Additional surgical history: Gastric bypass surgery. Cholecystectomy. Appendectomy. Several upper endoscopies - Family History Additional family history: Sibling with rheumatic fever. 1st degree relatives with endometriosis. Second-degree relatives with uterine cancer - Social History Smoking Status: Never smoked Alcohol Use: None Drug Use: None Additional social history: Independent in her ADLs comma the patient works in the healthcare field and reports that her job is extremely stressful; she is originally from [place] but she does contract work in numerous locations in [place] as well as [place] and [place] Review of Systems Review of Systems: ROS: 10pt was reviewed & negative except for what was stated in HPI & below Constitutional: Reports: fever Gastrointestinal: Reports: abdominal pain, nausea Physical Exam Physical Exam: Temp Pulse Resp BP Pulse Ox 37.9 C 100 18 170/130 H 94 11/15/17 20:13 11/15/17 20:13 11/15/17 20:13 11/15/17 20:13 11/15/17 20:13 Constitutional: no apparent distress, appears nourished, not in pain, obese, No uncomfortable Eyes: PERRL, anicteric sclera, EOMI Ears, Nose, Mouth, Throat: moist mucous membranes, hearing normal, ears appear normal, no oral mucosal ulcers Cardiovascular: regular rate and rhythym, no murmur, rub, or gallop, No edema Respiratory: no respiratory distress, no rales or rhonchi, clear to auscultation Gastrointestinal: normoactive bowel sounds, no palpable masses, tenderness ( Mild to mild depth palpation diffusely throughout the abdomen), other (Obese abdomen), No guarding, No distension Skin: warm, other (Well-healing surgical scars along the abdomen), No rash ( None on upper chest) Neurologic: AAOx3, sensation intact bilaterally, No weakness Psychiatric: interacting appropriately, not anxious, not encephalopathic, thought process linear Lab Data & Imaging Review 11/15/17 16:56 11/15/17 16:56 WBC 12.55 10^3/uL (3.80-9.50) H 11/15/17 16:56 RBC 4.68 10^6/uL (4.18-5.33) 11/15/17 16:56 Hgb 11.8 g/dL (12.6-16.3) L 11/15/17 16:56 Hct 37.2 % (38.0-47.0) L 11/15/17 16:56 MCV 79.5 fL (81.5-99.8) L 11/15/17 16:56 MCH 25.2 pg (27.9-34.1) L 11/15/17 16:56 MCHC 31.7 g/dL (32.4-36.7) L 11/15/17 16:56 RDW 17.2 % (11.5-15.2) H 11/15/17 16:56 Plt Count 567 10^3/uL (150-400) H 11/15/17 16:56 MPV 9.4 fL (8.7-11.7) 11/15/17 16:56 Neut % (Auto) 66.1 % (39.3-74.2) 11/15/17 16:56 Lymph % (Auto) 26.0 % (15.0-45.0) 11/15/17 16:56 [place] % (Auto) 6.1 % (4.5-13.0) 11/15/17 16:56 Eos % (Auto) 0.8 % (0.6-7.6) 11/15/17 16:56 Baso % (Auto) 0.6 % (0.3-1.7) 11/15/17 16:56 Nucleat RBC Rel Count 0.0 % (0.0-0.2) 11/15/17 16:56 Absolute Neuts (auto) 8.31 10^3/uL (1.70-6.50) H 11/15/17 16:56 Absolute Lymphs (auto) 3.26 10^3/uL (1.00-3.00) H 11/15/17 16:56 Absolute Monos (auto) 0.76 10^3/uL (0.30-0.80) 11/15/17 16:56 Absolute Eos (auto) 0.10 10^3/uL (0.03-0.40) 11/15/17 16:56 Absolute Basos (auto) 0.07 10^3/uL (0.02-0.10) 11/15/17 16:56 Absolute Nucleated RBC 0.00 10^3/uL (0-0.01) 11/15/17 16:56 Immature Gran % 0.4 % (0.0-1.1) 11/15/17 16:56 Immature Gran # 0.05 10^3/uL (0.00-0.10) 11/15/17 16:56 Sodium 143 mEq/L (135-145) 11/15/17 16:56 Potassium 4.0 mEq/L (3.3-5.0) 11/15/17 16:56 Chloride 108 mEq/L (97-110) 11/15/17 16:56 Carbon Dioxide 21 mEq/l (22-31) L 11/15/17 16:56 Anion Gap 14 mEq/L (8-16) 11/15/17 16:56 BUN 9 mg/dL (7-23) 11/15/17 16:56 Creatinine 0.7 mg/dL (0.6-1.0) 11/15/17 16:56 Estimated GFR > 60 11/15/17 16:56 Glucose 93 mg/dL (70-100) 11/15/17 16:56 Calcium 9.2 mg/dL (8.5-10.4) 11/15/17 16:56 Total Bilirubin 0.5 mg/dL (0.1-1.4) 11/15/17 16:56 Conjugated Bilirubin 0.5 mg/dL (0.0-0.5) 11/15/17 16:56 Unconjugated Bilirubin 0.0 mg/dL (0.0-1.1) 11/15/17 16:56 AST 62 IU/L (14-46) H 11/15/17 16:56 ALT 91 IU/L (9-52) H 11/15/17 16:56 Alkaline Phosphatase 106 IU/L (38-126) 11/15/17 16:56 Total Protein 7.6 g/dL (6.3-8.2) 11/15/17 16:56 Albumin 4.1 g/dL (3.5-5.0) 11/15/17 16:56 Lipase 197 IU/L (23-300) 11/15/17 16:56 Urine Color YELLOW 11/15/17 19:40 Urine Appearance CLEAR 11/15/17 19:40 Urine pH 6.0 (5.0-7.5) 11/15/17 19:40 Ur Specific [place] 1.016 (1.002-1.030) 11/15/17 19:40 Urine Protein NEGATIVE (NEGATIVE) 11/15/17 19:40 Urine Ketones 1+ (NEGATIVE) H 11/15/17 19:40 Urine Blood NEGATIVE (NEGATIVE) 11/15/17 19:40 Urine Nitrate NEGATIVE (NEGATIVE) 11/15/17 19:40 Urine Bilirubin NEGATIVE (NEGATIVE) 11/15/17 19:40 Urine Urobilinogen NEGATIVE EU (0.2-1.0) 11/15/17 19:40 Ur Leukocyte Esterase NEGATIVE (NEGATIVE) 11/15/17 19:40 Urine RBC 1-3 /hpf (0-3) 11/15/17 19:40 Urine WBC 1-3 /hpf (0-3) 11/15/17 19:40 Ur Epithelial Cells TRACE /lpf (NONE-1+) 11/15/17 19:40 Urine Mucus 2+ /lpf (NONE-1+) H 11/15/17 19:40 Urine Glucose NEGATIVE (NEGATIVE) 11/15/17 19:40 Visualized and Interpreted imaging results: Yes Interpretation: Abdominal CT demonstrating small hiatal hernia, hepatic steatosis, no other abnormalities Assessment & Plan Assessment: 42-year-old female presents with acute on chronic abdominal pain Plan: 1. Abdominal pain. Acute on chronic, new problem this provider, further workup indicated. Potential etiologies include irritable bowel syndrome versus lupus related abdominal pain versus endometriosis -pelvic ultrasound from day prior demonstrating some fibroids but no other abnormalities -given her relatively benign CT and pelvic ultrasound, no additional imaging required at this time as I do not believe the etiology of her pain is structurally based -will check ESR and CRP to determine whether there is any indication that a lupus flare or other inflammatory syndrome is contributing -given that the location is suprapubic and not midepigastric, I do not feel like the current presentation is related to previous gastric bypass surgery and I will not consult Gastroenterology to perform upper endoscopy as I feel like this would be relatively low yield at this time -that being said, I am very suspicious that the patient has some kind of functional, chronic pain syndrome, either endometriosis or irritable bowel syndrome, and since the patient is herself averse to opiates, I would also recommend attempting to treat the symptoms with non-narcotic methods, including Bentyl as needed, antiemetics as needed, heating pad -recommend ongoing outpatient mental health care with EMDR and her outpatient psychiatrist Dr. Gilbert -however, the patient may require outpatient gastroenterology follow-up a to help reassure her new medical providers that no advanced gastroenterology evaluation is required at this time, referral will be provided 2. Reported lupus. Chronic, patient reports that she has previously responded to steroid burst, and if the patient does not respond to any the above- mentioned treatment, and she does have evidence of elevated inflammatory markers , it may be reasonable to provide her with a limited supply of a steroid burst and outpatient follow-up with a local textiles printer for further evaluation -will provide outpatient rheumatology referral in discharge summary tab 3. Morbid obesity. Status post gastric bypass, recommend ongoing dietary counseling through primary care provider office -new outpatient primary care provider recommended [facility] patient has significant barriers to seeing her previous provider in [place], outpatient referral provided 4. Transaminitis. Most likely secondary to suspected hepatic steatosis, no further workup indicated Diet. Regular as tolerated Prophylaxis. Low risk, SCDs Code. Full Disposition. Anticipated discharge is 11/16, pending stabilization of the above. Of note, patient will require encouragement to follow up with all these aforementioned providers. I have discussed patient's presentation with emergency department provider, Santiago Lopez, he and I both agree that since the patient's symptoms are unable to be controlled in the emergency department and she is requesting further stabilization, observation placement is the appropriate level of care.
[2017-11-15] MEDS: PANTOPRAZOLE SODIUM 40 MG TAB PO SCH (23:50)
[2017-11-16] MEDS: NS 1,000 ML IV SCH (05:45)
[2017-11-16 06:54] LABS: PLATELET COUNT 482 10^3/uL (150-400)
[2017-11-16] MEDS: DICYCLOMINE 20 MG TAB PO PRN (08:23)
[2017-11-16] MEDS: PANTOPRAZOLE SODIUM 40 MG TAB PO SCH (08:23)
[2017-11-16] MEDS ORDERED: Herbals/Supplements -Info Only PO SCH (09:00)
[2017-11-16] MEDS ORDERED: ADDERALL 20 MG TAB PO PRN (09:00)
[2017-11-16] MEDS ORDERED: NORETHINDRONE ACET 5 MG TAB PO SCH (09:00)
[2017-11-16] MEDS ORDERED: methylPREDNISolone SOD SUCC 125 MG/2 ML VIAL IVP ONE (10:19)
[2017-11-16] MEDS ORDERED: traMADol 50 MG TAB PO PRN (10:19)
--- NOTE | 2017-11-16 11:04 | ASMTCASEMG ---
Living Arrangements What is your living Answers: Alone arrangement? Who do you live with? Type Of Residence What kind of residence do Answers: House you live in? Discharge Plan Comments Coordination Status Comments Notes: CM spoke w/ VIRGIE Steward regarding d/c POC. Pt is a 42 y/o female admitted for intractable abdominal pain. Pt will get a 1 time dose of iv steroids. Pt will most likely d/c independent when medically stable. No therapies ordered at this time. CM available for changes. Plan: Independent Date Signed: 11/16/2017 11:04 AM Electronically Signed By:MANOJ Rinaldi
[2017-11-16 12:13] VITALS: BP 146/100
--- NOTE | 2017-11-16 15:38 | ASMTLACE ---
JENNIFERE Length of stay for Answers: 1 day current admission Acuity / Level of Answers: No Care: Did the patient have an inpatient admission? Comorbidities - select Answers: Diabetes (uncontrolled or all that apply controlled) Opioid dependence / Chronic pain Other Notes: HTN, morbid obesity, lupus, Peptic ulcer disease # of Emergency department Answers: 3-4 visits in the last 6 months Social determinants Answers: Mental health diagnosis (anxiety, depression, pers onality disorders, etc.) Score: 13 Date Signed: 11/16/2017 03:37 PM Electronically Signed By:Yari Noonan RN
--- NOTE | 2017-11-16 15:41 | ASMTCMCOM ---
CM Note CM Note Notes: Spoke w/, asked CM to give pt referrals for Rheumatologists in her area. CM printed out 4 names and gave to pt. Date Signed: 11/16/2017 03:41 PM Electronically Signed By:Yari Noonan RN
--- NOTE | 2017-11-16 16:23 | GDS ---
[f rep st] DISCHARGE SUMMARY ALL DIAGNOSES: 1. Acute on chronic abdominal pain. 2. Suspected autoimmune disease, likely lupus. 3. Morbid obesity. 4. Mild elevated liver enzymes. HOSPITAL COURSE: A 42-year-old female with 2 visits to the ED in the last 2 days for fever, as well as abdominal pain. She had negative imaging including an abdominal CT scan without any acute finding s, as well as a pelvic and renal ultrasound. She did have a fibroid seen. She has a somewhat chroni c leukocytosis which is actually lower than her previous. She has also a chronic thrombocytosis. In flammatory markers were checked and showed an elevated ESR, as well as CRP. There was initially some concern that she was drug seeking, though after a long discussion with her, I do not think this is t he case. She does have chronic abdominal pain and is followed by pain management clinic. Given her elevated inflammatory markers and her reported history of lupus, I gave her a dose of steroids. Afte r this, she felt much better and her pain was a 5 which is quite tolerable for her. I think she need s to follow up with a sales representative supervisor and she has been given multiple referrals, all in [place] whe re she lives, to follow up with. I have given her a taper of prednisone with extra doses in case she decreases her prednisone dose and then feels poorly prior to getting in to see Rheumatology. I did not prescribe her any additional narcotics on discharge. She is comfortable with this plan and fully understanding. She is discharged in stable condition with multiple referrals to get in ideally with in 1-2 weeks for a rheumatology followup. /[id number]/MODL
== END 2017-11-16 16:40 | disposition home or self-care (01) ==
LOC: F3E 20:07
PROVIDERS: ADMIT Internal Medicine; ATTEND Student in an Organized Health Care Education/Training Program
DX: R10.84 Generalized abdominal pain (principal); D89.89 Other specified disorders involving the immune mechanism, not elsewhere classified; E66.01 Morbid (severe) obesity due to excess calories; Z68.41 Body mass index [BMI] 40.0-44.9, adult; R74.0 Nonspecific elevation of levels of transaminase and lactic acid dehydrogenase [LDH]; Z98.84 Bariatric surgery status
CPT/HCPCS: 96361; 96374; 96375; 99285; G0378; J1170; J2930; J3010